=== PATIENT | male | born 1960 | race Caucasian/White ===

== ENCOUNTER 2017-08-03 05:46 | Day surgery (SDC) | payer OTHER ==
[2017-08-03] MEDS ORDERED: ceFAZolin SODIUM 1 GM in IV DEXTROSE 5% 50 ML IV (06:00)
[2017-08-03] MEDS: IV RINGERS,LACTATED 1000ML 1,000 ML IV (06:31)
[2017-08-03] MEDS ORDERED: PROCHLORPERAZINE 10 MG/2 ML VIAL. IV (07:00)
[2017-08-03] MEDS ORDERED: fentaNYL PF VIAL 100 MCG/2 ML VIAL IV (07:00)
[2017-08-03] MEDS ORDERED: LIDOCAINE 1% PF 2 ML VIAL. ID (07:00)
[2017-08-03] MEDS ORDERED: ONDANSETRON PF 4 MG/2 ML VIAL. IV (07:00)
[2017-08-03] MEDS ORDERED: HYDROmorphone 2 MG/ML VIAL IV (07:00)
[2017-08-03] MEDS ORDERED: BUPIVACAINE MPF 0.5% 30 ML VIAL. (07:06)
[2017-08-03] MEDS ORDERED: fentaNYL PF VIAL 100 MCG/2 ML VIAL ×3 (07:09→10:13)
[2017-08-03] MEDS ORDERED: MIDAZOLAM HCL/PF 2 MG/2 ML VIAL. (07:09)
[2017-08-03] MEDS ORDERED: DEXAMETHASONE SOD PHOS 20 MG/5 ML VIAL. ×2 (07:09→09:36)
[2017-08-03] MEDS ORDERED: LIDOCAINE 1% PF 5 ML VIAL. (07:09)
[2017-08-03] MEDS ORDERED: ONDANSETRON PF 4 MG/2 ML VIAL. (07:10)
[2017-08-03] MEDS ORDERED: ROCURONIUM 50 MG/5 ML VIAL. (07:11)
[2017-08-03] MEDS ORDERED: FAMOTIDINE 20 MG/2 ML VIAL (07:14)
[2017-08-03] MEDS ORDERED: PROPOFOL 20 ML IV (07:14)
[2017-08-03] MEDS ORDERED: NEOSTIGMINE METHYLSULFATE 5 MG/5 ML SYRINGE. (08:50)
[2017-08-03] MEDS ORDERED: GLYCOPYRROLATE 1 MG/5 ML VIAL. (08:50)
[2017-08-03] MEDS: fentaNYL PF VIAL 100 MCG/2 ML VIAL IV ×2 (09:32→09:38)
[2017-08-03] MEDS: MORPHINE SULFATE 2 MG/ML DISP.SYRIN. IV ×2 (09:57→10:35)
[2017-08-03] MEDS: traMADol 50 MG TABLET PO (10:05)
[2017-08-03] MEDS ORDERED: hydrALAZINE 20 MG/ML VIAL. (10:17)
[2017-08-03] MEDS ORDERED: SEVOFLURANE 61 TO 120 MINUTES. IH (11:56)
== END 2017-08-03 10:52 | disposition home or self-care (01) ==
LOC: SURG 05:46
DX: S46.212A Strain of muscle, fascia and tendon of other parts of biceps, left arm, initial encounter (principal); X58.XXXA Exposure to other specified factors, initial encounter; Y93.89 Activity, other specified; Y92.89 Other specified places as the place of occurrence of the external cause; Y99.8 Other external cause status; I10 Essential (primary) hypertension; E66.9 Obesity, unspecified; M19.90 Unspecified osteoarthritis, unspecified site; Z87.39 Personal history of other diseases of the musculoskeletal system and connective tissue; Z86.69 Personal history of other diseases of the nervous system and sense organs; Z87.442 Personal history of urinary calculi
CPT/HCPCS: 24341; C1713; J0360; J0690; J1100; J2250; J2270; J2405; J2704; J2710; J3010; J3490; J7120; S0028